=== PATIENT | female | born 1940 | race Two or more races ===

== ENCOUNTER 2016-06-25 11:22 | Inpatient (IN) | payer SELFPAY ==
[~2016-06-25] VITALS: Ht 154.9 cm; Wt 80.8 kg
[2016-06-25] MEDS ORDERED: SODIUM CHLORIDE 0.9% 500 ML IV ONE (15:01)
[2016-06-25] MEDS ORDERED: CLINDAMYCIN 600MG IV 50 ML IV ONE (15:15)
[2016-06-25] MEDS ORDERED: SODIUM CHLORIDE 0.9% 1,000 ML IV ONE (15:15)
[2016-06-25 15:25] LABS: Basophils # (auto) 0 uL; Basophils % (auto) 0.3 % (0.0-2.0); Eosinophils # (auto) 0.2 uL; Eosinophils % (auto) 1.9 % (0.0-7.0); Hematocrit 43.5 % (36.0-46.0); Hemoglobin 14.3 g/dL (12.2-16.2); Lymphocytes # (auto) 2.8 uL; Lymphocytes % (auto) 32.6 % (10.0-50.0); Mean Corpuscular Hgb Conc. 32.9 g/dL (32.0-36.0); Mean Corpuscular Volume 91.4 fL (80.0-100.0); Mean Platelet Volume 10.9 fL (7.4-10.4); Monocytes # (auto) 0.5 uL; Neutrophils # (auto) 5.1 uL; Neutrophils % (auto) 59.2 % (37.0-80.0); Platelet Count (auto) 203 10^3/uL (140-450); Red Cell Distribution Width 13.8 % (11.6-16.0); White Blood Cell 8.5 10^3/uL (4.4-10.8)
[2016-06-25 15:48] LABS: BUN/Creatinine Ratio 24.6; Bilirubin, Total 0.5 mg/dL (0.2-1.0); Calcium 9.8 mg/dL (8.5-10.1); Potassium 4.2 mmol/L (3.5-5.1); Total Protein 7.8 g/dL (6.4-8.2)
[2016-06-25] MEDS: SODIUM CHLORIDE 0.9% 1,000 ML IV SCH (16:01)
[2016-06-25] MEDS ORDERED: MORPHINE SULF INJ 2 MG/ML SYRINGE 1ML IV PRN ×2 (16:15)
[2016-06-25] MEDS ORDERED: HYDROcodone-ACET 5/325MG TAB PO PRN (16:15)
[2016-06-25] MEDS ORDERED: ACETAMINOPHEN 500 MG TAB PO PRN (16:15)
[2016-06-25] MEDS ORDERED: LORazepam 0.5 MG TAB PO PRN (16:15)
[2016-06-25] MEDS ORDERED: TEMAZEPAM 15 MG CAP PO PRN (16:15)
[2016-06-25] MEDS ORDERED: LACTULOSE 20Gm/30ML SOLN PO PRN (16:15)
[2016-06-25] MEDS ORDERED: DEXTROSE (50%) 50ML SYRG IV PRN (16:15)
[2016-06-25] MEDS ORDERED: PROCHLORPERAZINE EDISYLATE 5 MG/ML 2ML VIAL IV PRN (16:15)
[2016-06-25] MEDS ORDERED: NITROGLYCERIN 0.4 MG SL TAB SL PRN (16:15)
[2016-06-25] MEDS ORDERED: cefTRIAXone 1GM/50ML D5W 50 ML IV ONE (16:30)
[2016-06-25] MEDS ORDERED: ENOXAPARIN SOD 40 MG/0.4 ML SYRINGE SC ONE (16:30)
[2016-06-25] MEDS: ACCU-CHEK COMFORT CURVE STRIP VI SCH ×2 (17:08→22:00)
[2016-06-25] MEDS: InsuLIN REG 1unit/0.01ml Soln (100units/ml) SC SCH ×2 (17:08→23:22)
[2016-06-25 21:00] VITALS: BP 122/65
[2016-06-25 22:00] VITALS: BP 122/65
[2016-06-25] MEDS: CLINDAMYCIN 600MG IV 50 ML IV SCH (23:20)
[2016-06-26] MEDS: SODIUM CHLORIDE 0.9% 1,000 ML IV SCH ×2 (04:47→12:01)
[2016-06-26 05:00] VITALS: BP 111/64
[2016-06-26] MEDS: CLINDAMYCIN 600MG IV 50 ML IV SCH ×2 (06:23→14:03)
[2016-06-26] MEDS: ACCU-CHEK COMFORT CURVE STRIP VI SCH ×2 (06:24→11:30)
[2016-06-26] MEDS: InsuLIN REG 1unit/0.01ml Soln (100units/ml) SC SCH ×2 (07:20→11:30)
[2016-06-26 09:00] VITALS: BP 122/70
[2016-06-26] MEDS ORDERED: cefTRIAXone 1GM/50ML D5W 50 ML IV SCH (09:00)
[2016-06-26] MEDS ORDERED: ENOXAPARIN SOD 40 MG/0.4 ML SYRINGE SC SCH (10:00)
== END 2016-06-26 17:20 | disposition home or self-care (01) | DRG 603 ==
LOC: ER 11:32 → TELE 11:33 → TELE-EAST 20:40
PROVIDERS: ADMIT Internal Medicine; ATTEND Internal Medicine
DX: L03.116 Cellulitis of left lower limb (principal); L97.329 Non-pressure chronic ulcer of left ankle with unspecified severity; E11.621 Type 2 diabetes mellitus with foot ulcer; I10 Essential (primary) hypertension; E78.5 Hyperlipidemia, unspecified; E11.65 Type 2 diabetes mellitus with hyperglycemia; Z83.3 Family history of diabetes mellitus; Z90.49 Acquired absence of other specified parts of digestive tract
CPT/HCPCS: 36415; 73590; 80053; 82962; 83036; 85025; 85652; 93926; 93971; 94761; 96365; 96366; 96368; 96372; J0696; J1815; J3490

== ENCOUNTER 2017-05-13 18:21 | Inpatient (IN) | payer MEDICAID ==
[~2017-05-13] VITALS: Ht 157.5 cm; Wt 76.4 kg
[2017-05-14 02:26] LABS: Basophils # (auto) 0 uL; Basophils % (auto) 0.6 % (0.0-2.0); Eosinophils # (auto) 0.2 uL; Eosinophils % (auto) 3.3 % (0.0-7.0); Hemoglobin 12.8 g/dL (12.2-16.2); Lymphocytes # (auto) 2.5 uL; Lymphocytes % (auto) 35.6 % (10.0-50.0); Mean Corpuscular Hemoglobin 30.7 pg (28.0-32.0); Mean Corpuscular Hgb Conc. 33.6 g/dL (32.0-36.0); Mean Corpuscular Volume 91.4 fL (80.0-100.0); Monocytes # (auto) 0.7 uL; Monocytes % (auto) 10.3 % (0.0-12.0); Neutrophils # (auto) 3.5 uL; Neutrophils % (auto) 50.2 % (37.0-80.0); Platelet Count (auto) 187 10^3/uL (140-450); Red Blood Cells 4.16 10^6/uL (4.0-5.20); Red Cell Distribution Width 13.8 % (11.8-14.3); White Blood Cell 6.9 10^3/uL (4.4-10.8)
[2017-05-14 02:49] LABS: Alanine Aminotransferase 18 U/L (13-56); Albumin 3.4 g/dL (3.4-5.0); Anion Gap 7 (5-15); Aspartate Aminotransferase 13 U/L (15-37); Blood Urea Nitrogen 18 mg/dL (7-18); Calcium 9.4 mg/dL (8.5-10.1); Carbon Dioxide 23 mmol/L (21-32); Chloride 108 mmol/L (98-107); GFR African American 124 mL/min; GFR Non-African American 103 mL/min; Glucose 199 mg/dL (74-106); Magnesium 2.1 mg/dL (1.6-2.6); Sodium 138 mmol/L (136-145)
[2017-05-14 02:50] LABS: INR 0.95 (0.9-1.15); Partial Thromboplastin Time 25.9 sec (22.64-33.71); Prothrombin Time 10.3 sec (9.37-12.3)
[2017-05-14 02:54] LABS: Alkaline Phosphatase 84 U/L (45-117); Bilirubin, Total 0.4 mg/dL (0.2-1.0); Total Protein 6.8 g/dL (6.4-8.2)
[2017-05-14] MEDS ORDERED: FUROSEMIDE 20 MG/2 ML VIAL IV ONE (06:00)
[2017-05-14] MEDS ORDERED: ONDANSETRON HCL 4 MG/2 ML VIAL IV PRN (06:15)
[2017-05-14] MEDS ORDERED: HYDROcodone-ACET 5/325MG TAB PO PRN (06:15)
[2017-05-14] MEDS ORDERED: ACETAMINOPHEN 500 MG TAB PO PRN (06:15)
[2017-05-14] MEDS ORDERED: MORPHINE SULFATE 4 MG/ML SYR/VIAL IV PRN (06:15)
[2017-05-14] MEDS ORDERED: DEXTROSE (50%) 50ML SYRG IV PRN (06:30)
[2017-05-14] MEDS: InsuLIN REG 1unit/0.01ml Soln (100units/ml) SC SCH ×4 (07:00→21:57)
[2017-05-14 08:39] VITALS: BP 124/64
[2017-05-14] MEDS: LOSARTAN POTASSIUM 25 MG TAB PO SCH (09:24)
[2017-05-14] MEDS: ASPirin-EC 81 mg tab PO SCH (09:24)
[2017-05-14] MEDS: ACCU-CHEK COMFORT CURVE STRIP VI SCH ×4 (09:26→21:57)
[2017-05-14] MEDS: LEVOTHYROXINE SODIUM 25 MCG TAB PO SCH (09:37)
[2017-05-14 12:58] VITALS: BP 102/57
[2017-05-14] MEDS ORDERED: RIVAROXABAN 15 MG TAB PO ONE (13:15)
[2017-05-14 16:40] VITALS: BP 127/65
[2017-05-14 21:48] VITALS: BP 121/68
[2017-05-14] MEDS: RIVAROXABAN 15 MG TAB PO SCH (21:54)
[2017-05-15 05:00] VITALS: BP 99/46
[2017-05-15] MEDS: LEVOTHYROXINE SODIUM 25 MCG TAB PO SCH (06:30)
[2017-05-15] MEDS: ACCU-CHEK COMFORT CURVE STRIP VI SCH ×2 (06:31→11:54)
[2017-05-15] MEDS: InsuLIN REG 1unit/0.01ml Soln (100units/ml) SC SCH ×2 (06:33→12:00)
[2017-05-15 08:00] VITALS: BP 124/64
[2017-05-15] MEDS: RIVAROXABAN 15 MG TAB PO SCH (08:50)
[2017-05-15] MEDS: LOSARTAN POTASSIUM 25 MG TAB PO SCH (08:50)
[2017-05-15] MEDS: ASPirin-EC 81 mg tab PO SCH (08:50)
[2017-05-15 09:06] VITALS: BP 105/58
[2017-05-15 10:15] VITALS: BP 105/58
[2017-05-15 12:12] VITALS: BP 120/57
== END 2017-05-15 15:45 | disposition home or self-care (01) | DRG 342 ==
LOC: ER 18:21 → TELE 18:22 → TELE-EAST 05-14 08:23
PROVIDERS: ADMIT Nurse Practitioner Family; ATTEND Internal Medicine
DX: S92.343A Displaced fracture of fourth metatarsal bone, unspecified foot, initial encounter for closed fracture (principal); I50.43 Acute on chronic combined systolic (congestive) and diastolic (congestive) heart failure; E05.90 Thyrotoxicosis, unspecified without thyrotoxic crisis or storm; J45.31 Mild persistent asthma with (acute) exacerbation; E03.9 Hypothyroidism, unspecified; I11.0 Hypertensive heart disease with heart failure; E11.9 Type 2 diabetes mellitus without complications; E66.9 Obesity, unspecified; E78.5 Hyperlipidemia, unspecified; R79.1 Abnormal coagulation profile; S92.353A Displaced fracture of fifth metatarsal bone, unspecified foot, initial encounter for closed fracture; S92.501A Displaced unspecified fracture of right lesser toe(s), initial encounter for closed fracture; W01.0XXA Fall on same level from slipping, tripping and stumbling without subsequent striking against object, initial encounter; Y93.89 Activity, other specified; Y92.89 Other specified places as the place of occurrence of the external cause; Z68.30 Body mass index [BMI] 30.0-30.9, adult
CPT/HCPCS: 36415; 71045; 73610; 73630; 80053; 82962; 83036; 83735; 83880; 84443; 84484; 85025; 85379; 85610; 85730; 93005; 93970; J1815